=== PATIENT | male | born 1975 | race African-American/Black ===

== ENCOUNTER 2020-11-29 04:08 | Emergency (ER) | payer SELFPAY ==
[~2020-11-29] VITALS: Ht 172.7 cm; Wt 74.4 kg
[2020-11-29 04:24] VITALS: BP 134/76
[2020-11-29] MEDS ORDERED: IBUPROFEN 400 MG TABLET ONE (04:24)
--- NOTE | 2020-11-29 04:26 | NUR ---
PT AAOX4. AMBULATORY WITH STEADY GAIT. EMY FROM [facility] C/O CHRONIC BACK PAIN. PER RA, PT WAS REFUSING TO LEAVE [facility], THEN STATED HIS BACK WAS HURTING. PT THEN AMBULATED TO THE [facility]. WHILE TRIAGING, PT AMBULATED AROUND THE ED WITH STEADY GAIT.
[2020-11-29] MEDS ORDERED: IBUPROFEN 400 MG TABLET PO ONE (04:30)
--- NOTE | 2020-11-29 04:34 | NUR ---
Patient discharged to home in stable condition. Written and verbal after care instructions given. Patient verbalizes understanding of instruction.
== END 2020-11-29 04:39 | disposition home or self-care (01) ==
LOC: EDBD 04:14 → ER 04:14
DX: G89.29 Other chronic pain (principal); M54.50 Low back pain, unspecified